=== PATIENT | male | born 1960 | race Caucasian/White ===

== ENCOUNTER 2017-07-17 10:15 | Inpatient (IN) | payer OTHER ==
[~2017-07-17] VITALS: Ht 167.6 cm; Wt 136.4 kg
[2017-07-17] VITALS (32 sets, daily range): BP systolic 76–117; BP diastolic 43–71; PULSE 41–65; RESP 12–34; Ht 167.6 cm; Wt 136.4 kg
[~2017-07-17 10:15] MED LIST: CEFAZOLIN 1 GM INJ ONE
[2017-07-17] MEDS ORDERED: POLYMYXIN/BACITRACIN 1L IRRIG ONE (11:23)
[2017-07-17] MEDS ORDERED: NEOMYC/POLYMYX/BACIT 30 GM OINT ONE (11:24)
--- NOTE | 2017-07-17 12:39 | HPN ---
Date/Time of Note Date/Time of Note DATE: 07/17/17 TIME: 12:38 Interval H&P Admission Note Pt. seen H&P reviewed: No system changes WESLY FIELDS MD Jul 17, 2017 12:38
[2017-07-17] MEDS ORDERED: morphine SULFATE/PF (10 MG/10 ML) INJ ONE (12:40)
[2017-07-17] MEDS ORDERED: MIDAZOLAM 1 MG/ML 2 ML INJ ONE (12:43)
[2017-07-17] MEDS ORDERED: FENTAnyl 50 MCG/ML VIAL ONE (12:43)
[2017-07-17] MEDS ORDERED: TRANEXAMIC ACID 1,000 MG in SOD CHLORIDE 0.9% 100 ML IV ONE ×4 (13:30)
[2017-07-17] MEDS ORDERED: CEFAZOLIN 1 GM/50 ML (PMX) 50 ML IVPB SCH (14:00)
[2017-07-17] MEDS ORDERED: PROPOFOL 20 ML ONE (14:39)
[2017-07-17] MEDS ORDERED: LIDOCAINE 2% (SDV) 5 ML INJ ONE (14:39)
[2017-07-17] MEDS ORDERED: DEXAMETHASONE 4 MG/ML 1 ML INJ ONE (14:39)
[2017-07-17] MEDS ORDERED: ROCURONIUM 50 MG INJ ONE (14:39)
[2017-07-17] MEDS ORDERED: NEOSTIGMINE 3 MG/3 ML SYRINGE ONE (14:40)
[2017-07-17] MEDS ORDERED: ONDANSETRON 4 MG INJ ONE ×2 (14:40→15:35)
[2017-07-17] MEDS ORDERED: GLYCOPYRROLATE 0.4 MG INJ ONE (14:40)
[2017-07-17] MEDS ORDERED: DIPHENHYDRAMINE 50 MG INJ IV PRN ×2 (15:00→15:30)
[2017-07-17] MEDS ORDERED: MEPERIDINE 25 MG INJ IV PRN (15:00)
[2017-07-17] MEDS ORDERED: KETOROLAC 30 MG INJ IV PRN ×2 (15:00→15:30)
[2017-07-17] MEDS ORDERED: FENTAnyl 50 MCG/ML VIAL IV PRN ×3 (15:00)
[2017-07-17] MEDS ORDERED: METOCLOPRAMIDE 10 MG INJ IV PRN (15:00)
[2017-07-17] MEDS ORDERED: MIDAZOLAM 1 MG/ML 2 ML INJ IV PRN (15:00)
[2017-07-17] MEDS ORDERED: OXYCODONE/ACETAMINOPHEN (5/325) TAB PO PRN ×2 (15:00)
[2017-07-17] MEDS ORDERED: LABETALOL HCL 20MG INJ IV PRN (15:00)
[2017-07-17] MEDS ORDERED: ONDANSETRON 4 MG INJ IV PRN ×2 (15:00→15:30)
[2017-07-17] MEDS ORDERED: hydrALAzine 20 MG INJ IV PRN (15:00)
[2017-07-17] MEDS ORDERED: HYDROmorphONE (0.2 MG/ML) 10ML SYG IV PRN ×3 (15:00)
--- NOTE | 2017-07-17 15:21 | OPPN ---
Date/Time of Note Date/Time of Note DATE: 07/17/17 TIME: 15:19 Operative Report Preoperative Diagnosis left knee arthritis Postoperative Diagnosis same Operation/Procedure Performed left total knee replacement Provider: WESLY FIELDS MD Anesthesia Type: general Transfusion Required: no Specimens bone fragment Grafts/Implants: none Grafts/Implants betancourt and nephew total knee Complications: no WESLY FIELDS MD Jul 17, 2017 15:21
[2017-07-17] MEDS ORDERED: NALOXONE (0.4 MG/ML) INJ IV PRN (15:30)
[2017-07-17] MEDS ORDERED: ZOLPIDEM 5 MG TAB PO PRN ×2 (15:30→17:00)
[2017-07-17] MEDS ORDERED: HYDROmorphONE 1 MG/ML SYG IV PRN ×2 (15:30)
[2017-07-17 16:40] LABS: HEMATOCRIT 38.3 % (42.0-52.0); HEMOGLOBIN 13.1 g/dl (14.0-18.0)
--- NOTE | 2017-07-17 16:45 | QN ---
Documentation Comment Consultation done. job I.D [id number] y/o s/p Left knee replacement; with hx HTN currently hypotensive 1. Pt is being given iv fluids 2 H/H per Ortho 3. Hold BP meds especially atenolol with bradycardia 4 GI/DVT prophylaxsis 5 Pain control 6 Zofran/Reglan 7 Pt will benefit from Rheumatolgy consult as outpatient due to severe OA of knees / multiple joints of hands Thank you for consult LEEANNA REEVES MD Jul 17, 2017 16:45
[2017-07-17] MEDS ORDERED: NACL 0.9% 3 ML SYG IV SCH (17:00)
[2017-07-17] MEDS ORDERED: ACETAMINOPHEN 325 MG TAB PO PRN (17:00)
[2017-07-17] MEDS: EPHEDrine SULFATE 50 MG/5 ML SYG IV PRN ×2 (17:00→17:08)
[2017-07-17] MEDS ORDERED: DOCUSATE SODIUM 100 MG CAP PO PRN (17:00)
[2017-07-17] MEDS ORDERED: SOD CHLORIDE 0.9% 500 ML IV ONE (17:00)
[2017-07-17 17:09] LABS: CALCIUM 8.6 mg/dl (8.4-10.2); CREATININE 0.97 mg/dl (0.61-1.24); POTASSIUM 4.7 mmol/L (3.5-5.1)
[2017-07-17] MEDS: FAMOTIDINE 20 MG INJ IV SCH (21:55)
[2017-07-18] VITALS (10 sets, daily range): BP systolic 100–130; BP diastolic 60–71; PULSE 56–81; RESP 16–21
--- NOTE | 2017-07-18 04:25 | CONS ---
DATE OF ADMISSION: 07/17/2017 DATE OF CONSULTATION: 07/17/2017 REASON FOR CONSULTATION: Medical management. HISTORY OF PRESENT ILLNESS: This is a 56-year-old male with a past medical history of hypertension, history of osteoarthritis of both knees, history of osteoarthritis of the hands, who was admitted electively with Dr. Huizar for left total knee replacement. According to the patient, patient has had high blood pressure for many years. Patient also has osteoarthritis of both the knees and electively went for a left knee arthroscopy . The surgeon is going to schedule him for right knee replacement in future. Patient also has osteoarthritis in multiple digits of the hand. Patient is being followed by PMD. Postop, patient 's blood pressure was in systolic of 90s, heart rate 40s-50s. Patient was given general anesthesia. Currently patient is having some nausea. Denies any chest pain, any shortness of breath. I was called in for further management. PAST MEDICAL HISTORY: 1. Hypertension. 2. Osteoarthritis, right and left knees; osteoarthritis of the hands. 3 . Obesity. ALLERGIES: NONE. PAST SURGICAL HISTORY: None. SOCIAL HISTORY: Denies any history of smoking, alcohol, and drugs. FAMILY HISTORY: Noncontributory. MEDICATION: At home: 1. Atenolol 25. 2. Benazepril 40. 3. Hydrochlorothiazide 25. REVIEW OF SYSTEMS: Denies any chest pain, any shortness of breath. Denies any abdominal pain. Currently nauseous. Denies any vomiting. Denies any diarrhea. Denies any fevers and chills. Denies any urinary symptoms. Patient is status post left knee replacement. Denies any focal neurological deficits. PHYSICAL EXAMINATION: VITAL SIGNS: Blood pressure currently 114/71, goes down to 90s over 50s. Respiratory rate 14-20, pulse is 46, saturation 96 percent on 2 L nasal cannula. GENERAL APPEARANCE: Patient is awake, alert, oriented, and has some nausea. NECK: Obese. Supple. No JVD. HEART: Bradycardic. LUNGS: Clear to auscultate bilaterally. ABDOMEN: Soft, nontender, nondistended. Positive bowel sounds. EXTREMITIES: Left lower extremity is status post knee replacement. Able to wiggle the toes. Right knee has osteoarthritis. MUSCULOSKELETAL: The patient also has multiple joint deformities in both hands. LABORATORY: No new labs. IMPRESSION: This is a 56-year-old male presenting with: 1. Left knee arthroscopy. 2. Osteoarthritis, status post left knee replacement. 3. Postop mild hypertension with mild bradycardia. 4. Patient was on beta martha also at home. 5. Hypertension; however, currently hypotensive. 6. Obesity. PLAN: At this period of time, patient will be admitted to med/surg unit. Patient is currently being admitted by Orthopedics. We will follow the patient with you. We will hold on the blood pressure medications at this point, since currently blood pressure is on the lower side. We will hold atenolol due to low heart rate. Patient will be on pain control, Zofran, GI and DVT prophylaxis. We will follow the patient with you. Thank you, Dr. Olvin Huizar, for calling consult on this patient. Dictated By: MD EILEEN Gill/marco/christina /Document#: [id number] [place]
[2017-07-18 06:33] LABS: BASOPHILS % 0.1 % (0.0-2.0); HEMATOCRIT 40.2 % (42.0-52.0); HEMOGLOBIN 13.8 g/dl (14.0-18.0); LYMPHOCYTES # 0.9 10^3/ul (0.8-2.9); LYMPHOCYTES % 5.5 % (15.0-51.0); MEAN CORPUSCULAR HEMOGLOBIN 31.5 pg (29.0-33.0); MEAN CORPUSCULAR HGB CONC 34.3 g/dl (32.0-37.0); MEAN CORPUSCULAR VOLUME 91.8 fl (82.0-101.0); MEAN PLATELET VOLUME 10.7 fl (7.4-10.4); MONOCYTE # 0.9 10^3/ul (0.3-0.9); MONOCYTES % 5.5 % (0.0-11.0); NEUTROPHILS % 88.4 % (39.0-77.0); PLATELET COUNT 218 10^3/UL (140-415); RED BLOOD COUNT 4.38 10^6/ul (4.70-6.10); RED CELL DISTRIBUTION WIDTH 12.3 % (11.5-14.5); WHITE BLOOD COUNT 15.7 10^3/ul (4.8-10.8)
[2017-07-18 07:10] LABS: CALCIUM 9.3 mg/dl (8.4-10.2); CREATININE 1.03 mg/dl (0.61-1.24); POTASSIUM 4.8 mmol/L (3.5-5.1)
[2017-07-18] MEDS: FAMOTIDINE 20 MG INJ IV SCH ×2 (08:54→20:52)
[2017-07-18] MEDS ORDERED: HYDROmorphONE 1 MG/ML SYG IV PRN (14:30)
[2017-07-18] MEDS: HYDROmorphONE 1 MG/ML SYG IV PRN ×3 (15:14→20:57)
--- NOTE | 2017-07-18 16:01 | PN ---
Date/Time of Note Date/Time of Note DATE: 07/18/17 TIME: 16:00 Assessment/Plan VTE Prophylaxis VTE Prophylaxis Intervention: other Lines/Catheters IV Catheter Type (from Nrs): Saline Lock Urinary Cath still in place: Yes Reason Cath still needed: other (indicate) Assessment/Plan Chief Complaint/Hosp Course 1. Left knee arthroscopy. 2. Osteoarthritis, status post left knee replacement. 3. Postop mild hypertension with mild bradycardia. 4. Patient was on beta martha also at home. 5. Hypertension; however, currently hypotensive. 6. Obesity. plan per ortho ck labs Problems: Subjective 24 Hr Interval Summary Respiratory: no complaints Cardiovascular: no complaints Musculoskeletal: bone/joint pain (+) Exam/Review of Systems Vital Signs Vitals Vital Signs Date Time Temp Pulse Resp B/P Pulse Ox O2 Delivery O2 Flow Rate FiO2 07/18/17 15:51 98.4 81 16 114/67 98 07/18/17 04:00 Nasal Cannula 2.0 Intake and Output 07/17/17 07/17/17 07/18/17 15:00 23:00 07:00 Intake Total 110 ml 1500 ml Output Total 320 ml Balance 110 ml 1180 ml Exam Neck: supple Respiratory: clear to auscultation Cardiovascular: regular rate and rhythm Gastrointestinal: soft Extremities: normal pulses Results Result Diagram: 07/18/17 0522 07/18/17 0527 Results 24 hrs Laboratory Tests Test 07/17/17 16:12 07/18/17 05:22 07/18/17 05:27 Hemoglobin 13.1 L 13.8 L Hematocrit 38.3 L 40.2 L Sodium Level 142 140 Potassium Level 4.7 4.8 Chloride Level 105 101 Carbon Dioxide Level 24 25 Anion Gap 18 H 19 H Blood Urea Nitrogen 14 21 H Creatinine 0.97 1.03 Glucose Level 118 134 Calcium Level 8.6 9.3 White Blood Count 15.7 H Red Blood Count 4.38 L Mean Corpuscular Volume 91.8 Mean Corpuscular Hemoglobin 31.5 Mean Corpuscular Hemoglobin Concent 34.3 Red Cell Distribution Width 12.3 Platelet Count 218 Mean Platelet Volume 10.7 H Neutrophils % 88.4 H Lymphocytes % 5.5 L Monocytes % 5.5 Eosinophils % 0.0 Basophils % 0.1 Nucleated Red Blood Cells % 0.0 Neutrophils # (Manual) 13.8 H Lymphocytes # 0.9 Monocytes # 0.9 Eosinophils # 0.0 Basophils # 0.0 Nucleated Red Blood Cells # 0.0 Medications Medications Current Medications Acetaminophen (Tylenol Tab) 650 mg Q6H PRN PO PAIN LEVEL 1-3 OR FEVER Last administered on 07/18/17 14:07; Admin Dose 650 MG; Start 07/17/17 at 17:00 Docusate Sodium (Colace) 100 mg Q12H PRN PO CONSTIPATION; Start 07/17/17 at 17: 00 Zolpidem Tartrate (Ambien) 5 mg QHS PRN PO SLEEP; Start 07/17/17 at 17:00 Famotidine (Pepcid Iv) 20 mg Q12 IV Last administered on 07/18/17 08:54; Admin Dose 20 MG; Start 07/17/17 at 21:00 Hydromorphone HCl (Dilaudid) 0.2 mg Q2 PRN IV PAIN LEVEL 1-5; Start 07/18/17 at 14:30 Hydromorphone HCl (Dilaudid) 0.4 mg Q2 PRN IV PAIN LEVEL 6-10 Last administered on 07/18/17 15:14; Admin Dose 0.4 MG; Start 07/18/17 at 14:30 MARK BENSON MD Jul 18, 2017 16:01
[2017-07-19] VITALS (13 sets, daily range): BP systolic 118–141; BP diastolic 61–83; PULSE 80–96; RESP 16–21
[2017-07-19] MEDS: HYDROmorphONE 1 MG/ML SYG IV PRN ×6 (02:17→20:07)
[2017-07-19 07:04] LABS: ABNORMAL IP MESSAGE 1; BASOPHILS % 0.2 % (0.0-2.0); EOSINOPHILS % 0.2 % (0.0-7.0); HEMATOCRIT 35.4 % (42.0-52.0); HEMOGLOBIN 12.2 g/dl (14.0-18.0); LYMPHOCYTES # 1.7 10^3/ul (0.8-2.9); LYMPHOCYTES % 12.4 % (15.0-51.0); MEAN CORPUSCULAR HEMOGLOBIN 31.3 pg (29.0-33.0); MEAN CORPUSCULAR HGB CONC 34.5 g/dl (32.0-37.0); MEAN CORPUSCULAR VOLUME 90.8 fl (82.0-101.0); MEAN PLATELET VOLUME 11.1 fl (7.4-10.4); MONOCYTE # 1.6 10^3/ul (0.3-0.9); MONOCYTES % 11.9 % (0.0-11.0); NEUTROPHILS % 74.9 % (39.0-77.0); PLATELET COUNT 170 10^3/UL (140-415); POSITIVE DIFF @See below; RED CELL DISTRIBUTION WIDTH 12.4 % (11.5-14.5); WHITE BLOOD COUNT 13.3 10^3/ul (4.8-10.8)
[2017-07-19 07:37] LABS: CALCIUM 8.9 mg/dl (8.4-10.2); CREATININE 1.02 mg/dl (0.61-1.24); POTASSIUM 4.4 mmol/L (3.5-5.1)
[2017-07-19] MEDS: FAMOTIDINE 20 MG INJ IV SCH ×2 (09:10→20:06)
[2017-07-19] MEDS: RIVAROXABAN 10 MG TABLET PO SCH (10:27)
--- NOTE | 2017-07-19 15:44 | PN ---
Date/Time of Note Date/Time of Note DATE: 07/19/17 TIME: 15:42 Assessment/Plan VTE Prophylaxis VTE Prophylaxis Intervention: other Lines/Catheters IV Catheter Type (from Nrsg): Saline Lock Urinary Cath still in place: Yes Reason Cath still needed: other (indicate) Assessment/Plan Chief Complaint/Hosp Course 1. Left knee arthroscopy. 2. Osteoarthritis, status post left knee replacement. 3. Postop mild hypertension with mild bradycardia. 4. Patient was on beta martha also at home. 5. LEFT KNEE EDEMA 6. Obesity. plan per ortho ck labs XARELTO Problems: Subjective 24 Hr Interval Summary Cardiovascular: no complaints Gastrointestinal: no complaints Musculoskeletal: bone/joint pain (+) Exam/Review of Systems Vital Signs Vitals Vital Signs Date Time Temp Pulse Resp B/P Pulse Ox O2 Delivery O2 Flow Rate FiO2 07/19/17 15:09 98.6 85 16 121/75 94 07/18/17 04:00 Nasal Cannula 2.0 Intake and Output 07/18/17 07/18/17 07/19/17 15:00 23:00 07:00 Intake Total 500 ml Output Total 500 ml 900 ml Balance -500 ml -400 ml Exam Respiratory: clear to auscultation Cardiovascular: regular rate and rhythm Gastrointestinal: soft Musculoskeletal: nl extremities to inspection Extremities: edema (+), normal pulses Results Result Diagram: 07/19/17 0541 07/19/17 0541 Results 24 hrs Laboratory Tests Test 07/19/17 05:41 White Blood Count 13.3 H Red Blood Count 3.90 L Hemoglobin 12.2 L Hematocrit 35.4 L Mean Corpuscular Volume 90.8 Mean Corpuscular Hemoglobin 31.3 Mean Corpuscular Hemoglobin Concent 34.5 Red Cell Distribution Width 12.4 Platelet Count 170 # Mean Platelet Volume 11.1 H Neutrophils % 74.9 Lymphocytes % 12.4 L Monocytes % 11.9 H Eosinophils % 0.2 Basophils % 0.2 Nucleated Red Blood Cells % 0.0 Neutrophils # (Manual) 10.0 H Lymphocytes # 1.7 Monocytes # 1.6 H Eosinophils # 0.0 Basophils # 0.0 Nucleated Red Blood Cells # 0.0 Sodium Level 140 Potassium Level 4.4 Chloride Level 101 Carbon Dioxide Level 26 Anion Gap 17 H Blood Urea Nitrogen 21 H Creatinine 1.02 Glucose Level 98 Calcium Level 8.9 Medications Medications Current Medications Acetaminophen (Tylenol Tab) 650 mg Q6H PRN PO PAIN LEVEL 1-3 OR FEVER Last administered on 07/18/17 14:07; Admin Dose 650 MG; Start 07/17/17 at 17:00 Docusate Sodium (Colace) 100 mg Q12H PRN PO CONSTIPATION; Start 07/17/17 at 17: 00 Zolpidem Tartrate (Ambien) 5 mg QHS PRN PO SLEEP; Start 07/17/17 at 17:00 Famotidine (Pepcid Iv) 20 mg Q12 IV Last administered on 07/19/17 09:10; Admin Dose 20 MG; Start 07/17/17 at 21:00 Hydromorphone HCl (Dilaudid) 0.2 mg Q2 PRN IV PAIN LEVEL 1-5; Start 07/18/17 at 14:30 Hydromorphone HCl (Dilaudid) 0.4 mg Q2 PRN IV PAIN LEVEL 6-10 Last administered on 07/19/17 13:36; Admin Dose 0.4 MG; Start 07/18/17 at 14:30 Rivaroxaban (Xarelto) 10 mg DAILY PO Last administered on 07/19/17 10:27; Admin Dose 10 MG; Start 07/19/17 at 09:00 MARK BENSON MD Jul 19, 2017 15:44
[2017-07-20] VITALS (8 sets, daily range): BP systolic 122–158; BP diastolic 71–78; PULSE 80–108; RESP 18
[2017-07-20] MEDS: HYDROmorphONE 1 MG/ML SYG IV PRN ×4 (00:35→13:07)
[2017-07-20 07:01] LABS: ABNORMAL IP MESSAGE 1; BASOPHILS % 0.2 % (0.0-2.0); EOSINOPHILS # 0.1 10^3/ul (0.0-0.5); EOSINOPHILS % 0.6 % (0.0-7.0); HEMATOCRIT 34.4 % (42.0-52.0); HEMOGLOBIN 11.8 g/dl (14.0-18.0); LYMPHOCYTES # 1.6 10^3/ul (0.8-2.9); LYMPHOCYTES % 12.3 % (15.0-51.0); MEAN CORPUSCULAR HEMOGLOBIN 30.6 pg (29.0-33.0); MEAN CORPUSCULAR HGB CONC 34.3 g/dl (32.0-37.0); MEAN CORPUSCULAR VOLUME 89.4 fl (82.0-101.0); MEAN PLATELET VOLUME 10.8 fl (7.4-10.4); MONOCYTE # 1.6 10^3/ul (0.3-0.9); NEUTROPHILS % 74.6 % (39.0-77.0); PLATELET COUNT 169 10^3/UL (140-415); POSITIVE DIFF @See below; RED BLOOD COUNT 3.85 10^6/ul (4.70-6.10); RED CELL DISTRIBUTION WIDTH 12.4 % (11.5-14.5)
[2017-07-20 07:29] LABS: CALCIUM 8.9 mg/dl (8.4-10.2); CREATININE 0.88 mg/dl (0.61-1.24); POTASSIUM 4.1 mmol/L (3.5-5.1)
--- NOTE | 2017-07-20 08:27 | OPR ---
DATE OF OPERATION: SURGEON: Olvin Huizar MD. PREOPERATIVE DIAGNOSIS: Severe left knee osteoarthritis. PREOPERATIVE DIAGNOSIS: Severe left knee osteoarthritis. OPERATION PERFORMED: Left total knee replacement arthroplasty. COMPONENTS: Parekh and Nephew posterior stabilized component, size 8 femur , size 6 tibial, and 9 mm alignment, 26 mm patellar button. Components cemented with antibiotic impregnated cement. ANESTHESIA: General. ESTIMATED BLOOD LOSS: 250 mL. COMPLICATIONS: None. OPERATIVE PROCEDURE: The patient was taken to the operating room and general anesthesia . The patient was given 2 grams of . administered intravenously. A tourniquet was applied to the left side, the left leg was prepped and draped in the usual sterile manner. Exsanguinated using an Esmarch bandage. The tourniquet was inflated to mmHg. An anterior incision was made . in the medial compartment. The patella was prepared for a 26 mm button. The femur cut with intermedullary guide to a size 8. Posterior stabilized. The tibial was cut for a size 6. A trial reduction was carried out. A 9 mm liner provided full stable extension in medial and lateral stable in flexion with no subluxation anteriorly and good patella tracking was noted. The bone was irrigated with pulsatile lavage, the components were brought in, cement mixed. The wound was dry and the components applied. Cement set. Excess cement was removed meticulously. The tourniquet was deflated. Hemostasis was ascertained. Autotransfusion drain was placed into the joint. Packing was excellent. Arthrotomy closed with #2 FiberWire sutures. The subcutaneous layer with #1 Vicryl suture and akash on the skin. Compression bandage applied. Aquacel dressing. therapy applied. Anesthetic reversed. The patient was taken to the Recovery room in stable condition. Dictated By: Olvin Huizar MD /marco/mason /Document#: [id number]
[2017-07-20] MEDS: FAMOTIDINE 20 MG INJ IV SCH (08:36)
[2017-07-20] MEDS: RIVAROXABAN 10 MG TABLET PO SCH (08:36)
--- NOTE | 2017-07-20 13:13 | OPPN ---
Date/Time of Note Date/Time of Note DATE: 07/20/17 TIME: 13:11 Anesthesia Follow up Anesthesia Follow up Last documented vital signs Vital Signs Date Time Temp Pulse Resp B/P Pulse Ox O2 Delivery O2 Flow Rate FiO2 07/20/17 12:03 91 07/20/17 11:40 97.9 18 158/72 95 07/18/17 04:00 Nasal Cannula 2.0 Respiratory function: WNL Cardiovascular function: WNL Comments status post left knee replacement under general anesthesia with intrathecal duramorph for post operative pain management. satisfactory pain management with intrathecal morphine with parenteral supplement. no adverse side effects noted. INOCENCIO KUMARI Jul 20, 2017 13:13
--- NOTE | 2017-07-20 14:47 | PDOCDIS ---
Discharge Instructions DIAGNOSIS Discharge Diagnosis LEFT KNEE ARTHROPLASTY CONDITION Patient Condition: Fair HOME CARE INSTRUCTIONS: Diet Instructions: Low Fat /CholesterolSpecial Diet: CARDIAC ACTIVITY: Activity Restrictions: Avoid heavy lifting Do not Drive Avoid Heavy Housework Bathing Restrictions: no showeing until akash are out FOLLOW UP/APPOINTMENTS Follow-up Plan F/U Dr Huizar in 1 week f/u PMD in 2 weeks Return to ER if has worsening leg pain/redness/fevers or chills LEEANNA REEVES MD Jul 20, 2017 14:46
[2017-07-20] MEDS ORDERED: BENA1TAB12 PO (15:08)
[2017-07-20] MEDS ORDERED: BENA40TA41 PO (15:09)
[2017-07-20] MEDS ORDERED: HYD25 PO (15:10)
[2017-07-20] MEDS ORDERED: ATEN-51 PO (15:11)
[2017-07-20] MEDS ORDERED: BENA20TA65 PO (15:35)
[2017-07-20] MEDS ORDERED: BENA40TA54 PO ×2 (15:38→15:39)
[2017-07-20] MEDS ORDERED: RIVA10TA PO (15:44)
[2017-07-20] MEDS ORDERED: FAMOTIDINE 20 MG TAB PO SCH (21:00)
--- NOTE | 2017-07-21 06:13 | DS ---
DATE OF ADMISSION: 07/17/2017 DATE OF DISCHARGE: 07/20/2017 HOSPITAL COURSE: This is a 56-year-old male with a past medical history of hypertension, osteoarthritis of both knees, and osteoarthritis of the hands who was admitted for Dr. Olvin Huizar for left total knee replacement arthroplasty . The patient also had osteoarthritis of multiple digits on the hand. The patient was admitted on the 17 of July for elective total left knee replacement. Postop, the patient was slightly hypotensive, his blood pressure went down to 90s and heart rate was 50s. The patient was transferred to the telemetry floor for that. The patient was seen. Blood pressure medications were held. The patient had stable hemoglobin that was stable from before at 13.1 to 13.8 . It was probably anesthesia effect. Overall, the patient was feeling better every day.Vital signs were stable. The patient was seen by physical therapy and was making good progress. Per Dr. Huizar, the patient is stable to go home on Xarelto for 14 days. FINAL DIAGNOSES: 1. Left knee replacement arthroplasty. 2. History of hypertension, but with mild postoperative hypertension and mild bradycardia. 3. Osteoarthritis of the right knee. 4. Obesity. DISCHARGE INSTRUCTIONS: The patient was instructed to follow with Dr. Huizar in about 1 week and follow up with PMD in about 2 weeks. DISCHARGE MEDICATIONS: Home medications of: 1. Atenolol 25 mg. 2. Benazepril 40 mg. 3. Hydrochlorothiazide 25 mg. 4. Xarelto 10 mg p.o. daily for 14 days. The patient will be given a prescription for narcotic at Dr. Huizar's office. Dictated By: MD EILEEN Mo/marco/vicky /Document#: [id number] [place]
== END 2017-07-20 17:45 | disposition home health service (06) | DRG 470 ==
LOC: REC 10:43 → TEL 18:19
PROVIDERS: ADMIT Specialist; ATTEND Specialist
PROC: 0SRD0J9 Replacement of Left Knee Joint with Synthetic Substitute, Cemented, Open Approach (ICD-10-PCS; principal; 2017-07-17 12:30)
DX: M17.0 Bilateral primary osteoarthritis of knee (principal); Z68.42 Body mass index [BMI] 45.0-49.9, adult; I10 Essential (primary) hypertension; E66.9 Obesity, unspecified; M19.042 Primary osteoarthritis, left hand; M19.041 Primary osteoarthritis, right hand; R00.1 Bradycardia, unspecified; I95.81 Postprocedural hypotension
CPT/HCPCS: 80048; 85014; 85018; 85025; 87086; 88304; 97116; 97162; 97530; C1713; J0690; J1100; J1170; J2250; J2274; J2405; J2710; J2765; J3010

== ENCOUNTER 2018-07-19 08:55 | Day surgery (SDC) | END 2018-07-19 16:12 | disposition home or self-care (01) ==